=== PATIENT | male | born 2000 | race Caucasian/White ===

== ENCOUNTER 2023-02-04 06:16 | Day surgery (SDC) | payer BC ==
[2023-02-04 06:58] LABS: Hematocrit 40.7 % (42.0-52.0)
[2023-02-04 07:36] LABS: BHCG - Serum Negative; Pregs Control Background? CLEAR/WHITE (CLR/WHITE); Pregs Control Bar Appear? YES (CONTROL BAR)
[2023-02-04] MEDS ORDERED: PROPOFOL 200 MG/20 ML VIAL ONE (08:55)
[2023-02-04] MEDS ORDERED: Lidocaine 1% PF 5 ML VIAL ONE ×2 (08:55→09:05)
[2023-02-04] MEDS ORDERED: Ondansetron PF 4 MG/2 ML Vial ONE ×2 (08:55→09:05)
[2023-02-04] MEDS ORDERED: Dexamethasone 20 MG/5 ML VIAL ONE ×2 (08:55→09:05)
[2023-02-04] MEDS ORDERED: fentaNYL PF 100 MCG/2 ML SYRINGE ONE (09:05)
[2023-02-04] MEDS ORDERED: PROPOFOL 20 ML ONE (09:05)
[2023-02-04] MEDS ORDERED: Midazolam HCl 2 mg/2 ml Vial ONE (09:17)
[2023-02-04] MEDS ORDERED: Ferric Subsulfate 8 ML TOPICAL SOLN ONE (09:31)
[2023-02-04] MEDS ORDERED: fentaNYL 50 mcg/mL 1 mL Vial ONE (09:53)
[2023-02-04] MEDS ORDERED: Meperidine HCl/PF 25 MG/ML VIAL ONE (09:53)
[2023-02-04] MEDS ORDERED: Morphine 2 MG/ML VIAL ONE (10:26)
[2023-02-04] MEDS ORDERED: Hydrocodone-Acetamin 15 ML UDCUP ONE (11:13)
== END 2023-02-04 11:40 | disposition home or self-care (01) ==
LOC: SDC 06:16
PROVIDERS: ATTEND Otolaryngology Plastic Surgery within the Head & Neck
PROC: 0CTQXZZ Resection of Adenoids, External Approach (ICD-10-PCS; principal; 2023-02-04)
PROC: 0CTPXZZ Resection of Tonsils, External Approach (ICD-10-PCS; principal; 2023-02-04)
DX: J35.03 Chronic tonsillitis and adenoiditis (principal)
CPT/HCPCS: 36415; 84703; 85014; 88304; J1100; J2175; J2250; J2272; J2405; J2704; J3010